=== PATIENT | male | born 1960 | race Caucasian/White ===

== ENCOUNTER 2018-10-04 15:04 | Emergency (ER) | payer MEDICARE, MEDICAID ==
[~2018-10-04] VITALS: Ht 172.7 cm; Wt 85.0 kg
[2018-10-04 15:30] VITALS: Ht 172.7 cm; Wt 85.0 kg
--- NOTE | 2018-10-04 16:53 | ERD ---
ER Documentation Chief Complaint Chief Complaint pt laying on the sidewalk, bystander called ems HPI 58-year-old man brought in by EMS for public intoxication and altered mental status, patient admits to alcohol abuse but states he has not drank in a few days and states he had tonic-clonic seizure. Patient does state sometimes when he does not drink he experiences seizures. He denies trauma, no fevers or chills, no vomiting or diarrhea but states he lost control of his bladder with seizure earlier today. Patient was transported here by EMS lethargic but arousable. ROS All systems reviewed and are negative except as per history of present illness. Medications Home Meds No Active Prescriptions or Reported Meds Allergies Allergies: Coded Allergies: No Known Allergy (Unverified , 10/04/18) PMhx/Soc Alcohol abuse Medical and Surgical Hx: Unable to obtain Hx Alcohol Use: No Hx Substance Use: No Hx Tobacco Use: No Smoking Status: Never smoker FmHx Family History: No diabetes Physical Exam Vitals Vital Signs Date Temp Pulse Resp B/P (MAP) Pulse Ox O2 O2 Flow FiO2 Time Delivery Rate 10/04/18 90 18 124/95 98 Room Air 16:53 (105) 10/04/18 97.7 101 18 118/66 99 15:30 (83) Physical Exam Const: No acute distress, afebrile Head: Atraumatic Eyes: Normal Conjunctiva ENT: Normal External Ears, Nose and Mouth. Neck: Full range of motion. No meningismus. Resp: Clear to auscultation bilaterally Cardio: Tachycardic and regular, no murmurs Ext: No cyanosis, or edema, calves symmetrical Neur: Awake and alert x1, patient moving all extremities, pupils equal round reactive to light, no focal deficits or facial asymmetry. Patient is lethargic but arousable Psych: Normal Mood and Affect Result Diagram: 10/04/18 1626 10/04/18 1626 Results 24 hrs Laboratory Tests Test 10/04/18 15:40 10/04/18 16:26 Bedside Glucose 93 mg/dL White Blood Count 8.8 10^3/ul Red Blood Count 4.73 10^6/ul Hemoglobin 14.5 g/dl Hematocrit 43.7 % Mean Corpuscular Volume 92.4 fl Mean Corpuscular Hemoglobin 30.7 pg Mean Corpuscular Hemoglobin Concent 33.2 g/dl Red Cell Distribution Width 13.5 % Platelet Count 307 10^3/UL Mean Platelet Volume 9.4 fl Immature Granulocytes % 0.600 % Neutrophils % 65.3 % Segmented Neutrophils % (Manual) 69 % Lymphocytes % 24.5 % Lymphocytes % (Manual) 20 % Reactive Lymphocytes % (Manual) 1 % Monocytes % 6.4 % Monocytes % (Manual) 7 % Eosinophils % 2.6 % Eosinophils % (Manual) 2 % Basophils % 0.6 % Promyelocytes % (Manual) 1 % Nucleated Red Blood Cells % 0.0 /100WBC Immature Granulocytes # 0.050 10^3/ul Neutrophils # 5.7 10^3/ul Lymphocytes (Manual) 1.7 10^3/ul Lymphocytes # 2.2 10^3/ul Reactive Lymphocytes # 0.0 10^3/ul Monocytes # 0.6 10^3/ul Monocytes # (Manual) 0.6 10^3/ul Eosinophils # 0.2 10^3/ul Basophils # 0.1 10^3/ul Promyelocytes # 0.0 10^3/ul Nucleated Red Blood Cells # 0.0 10^3/ul Platelet Estimate NORMAL Sodium Level 143 mmol/L Potassium Level 4.2 mmol/L Chloride Level 109 mmol/L Carbon Dioxide Level 25 mmol/L Anion Gap 9 Blood Urea Nitrogen 9 mg/dl Creatinine 0.47 mg/dl Est Glomerular Filtrat Rate mL/min > 60 mL/min Glucose Level 92 mg/dl Calcium Level 9.6 mg/dl Ethyl Alcohol Level < 10.0 mg/dl Current Medications Medications Dose Sig/Aramis Start Time Status Last (Trade) Ordered Route PRN Stop Time Admin Dose Reason Admin Lorazepam 1 mg ONCE ONCE 10/04/18 DC 10/04/18 (Ativan) IV 17:30 17:29 10/04/18 17:31 Sodium 1,000 ml @ Q1H STAT 10/04/18 DC 10/04/18 Chloride 1,000 mls/hr IV 17:01 17:29 10/04/18 18:00 Procedures/MDM One AP view of the chest performed, read by me reveals no acute infiltrates, normal mediastinum, sharp costophrenic and cardiac borders, no air under the diaphragm. Otherwise unremarkable chest x-ray. CT scan of the brain was performed was negative for acute bleed mass or shift. Ethanol level was negative I administered 1 L normal saline IV and lorazepam 1 mg IV for possible alcohol withdrawal seizure. CBC and electrolytes were normal. Observation Note: Time: 5-1/2 hours Family Hx: No Hypertension Evaluation: Multiple exams showed improving symptoms and no evidence of worsening mental status or seizure activity Differential diagnoses considered, included but not limited to acute coronary syndrome, pulmonary embolism, aortic dissection, abdominal aortic aneurysm, sepsis, stroke, meningitis, encephalitis, pneumonia, appendicitis, cholecystitis, bowel obstruction, pyelonephritis, nephrolithiasis, cystitis, as well as metabolic, hematologic, and electrolyte abnormalities. As well as abscess, cellulitis, fractures, and dislocations. Patient feels much better at this time, and vital signs are normal, symptoms have improved. I did give strict instructions to return to the ED if symptoms continue or worsen, patient will otherwise follow-up with primary care physician. Patient understood instructions and agreed to plan. Disclaimer: Inadvertent spelling and grammatical errors are likely due to EHR/dictation software use and do not reflect on the overall quality of patient care. Also, please note that the electronic time recorded on this note does not necessarily reflect the actual time of the patient encounter. Departure Diagnosis: Primary Impression: Alcohol withdrawal seizure Complication of substance-induced condition: uncomplicated Qualified Codes: F10.230 - Alcohol dependence with withdrawal, uncomplicated Additional Impression: Alcohol abuse Ruled Out: Alcohol intoxication Condition: MARY JANE Degroot MD Oct 04, 2018 16:53
[2018-10-04] MEDS ORDERED: SOD CHLORIDE 0.9% 1,000 ML IV STA (17:01)
[2018-10-04] MEDS ORDERED: LORAZEPAM 2 MG INJ IV ONE (17:30)
[2018-10-05 02:05] VITALS: BP 133/117; PULSE 90; RESP 16
== END 2018-10-05 02:09 | disposition home or self-care (01) ==
LOC: E/R 15:04
DX: F10.10 Alcohol abuse, uncomplicated (principal)
CPT/HCPCS: 70450; 71045; 80048; 80307; 82962; 85025; 96374; 99285; J2060; J7030